=== PATIENT | female | born 1945 | race Caucasian/White ===

== ENCOUNTER 2018-02-14 14:06 | Inpatient (IN) | payer MEDICARE ==
[~2018-02-14] VITALS: Ht 154.9 cm; Wt 61.7 kg
[2018-02-14 14:56] LABS: BASOPHILS # (AUTO) 0.2 /CMM (0.0-0.2); BASOPHILS % (AUTO) 2.3 % (0.0-2.0); EOSINOPHILS % (AUTO) 0.7 % (0.0-6.0); HEMATOCRIT 43 % (33-45); HEMOGLOBIN 13.8 g/dL (11.5-14.8); LYMPHOCYTES # (AUTO) 2.2 /CMM (0.8-4.8); MEAN CORPUSCULAR HEMOGLOBIN 29 PG (26.0-33.0); MEAN CORPUSCULAR HGB CONC 32 g/dl (31.0-36.0); MEAN CORPUSCULAR VOLUME 88 fL (82-100); MONOCYTES # (AUTO) 0.5 /CMM (0.1-1.30); MONOCYTES % (AUTO) 4.7 % (2.0-12.0); NEUTROPHILS # (AUTO) 7.8 /CMM (1.8-8.9); NEUTROPHILS % (AUTO) 72.3 % (43.0-81.0); PLATELET COUNT (AUTO) 497 /CMM (150-450); RDW COEFFICIENT OF VARIATION 12.8 (11.5-15.0); RED BLOOD CELL COUNT(AUTO) 4.85 MIL/uL (4.0-5.2); WHITE BLOOD COUNT (AUTO) 10.8 K/uL (4.3-11.0)
[2018-02-14] MEDS ORDERED: MORPHINE SULFATE INJ 4 MG/ML DISP.SYRIN ONE ×2 (14:58→18:30)
[2018-02-14] MEDS ORDERED: ONDANSETRON HCL/PF 4 MG/2 ML VIAL ONE (14:58)
[2018-02-14] MEDS ORDERED: IV NS 0.9% 1,000 ML BAG IV ONE (15:00)
[2018-02-14] MEDS ORDERED: MORPHINE SULFATE INJ 2 MG/ML DISP.SYRIN IV ONE ×2 (15:00→18:30)
[2018-02-14] MEDS ORDERED: ONDANSETRON HCL/PF 4 MG/2 ML VIAL IVP ONE (15:00)
[2018-02-14 15:05] LABS: CALCIUM, SERUM 9.1 mg/dL (8.5-10.1); CARBON DIOXIDE 29 mmol/L (21-32); CHLORIDE 103 mmol/L (98-107); CREATININE 0.8 mg/dL (0.6-1.3); GLUCOSE 103 mg/dL (74-106); POTASSIUM 4.1 mmol/L (3.5-5.1); SODIUM SERUM 139 mmol/L (136-145); UREA NITROGEN, BLOOD 8 mg/dL (7-18)
[2018-02-14 15:08] LABS: INR 0.98 (0.85-1.15)
--- NOTE | 2018-02-14 15:10 | NUR ---
PT STS HAD CONSTIPATION X 3 DAYS, HAD BM TODAY WITH BLEEDING PER PT.
[2018-02-14 15:11] LABS: ALANINE AMINOTRANSFERASE 27 U/L (12-78); ALKALINE PHOSPHATASE 61 U/L (46-116); ASPARTATE AMINOTRANSFERASE 24 U/L (15-37); BILIRUBIN,DIRECT 0.2 mg/dL (0.0-0.2); BILIRUBIN,TOTAL 0.6 mg/dL (0.2-1.0); LIPASE 119 U/L (73-393); TOTAL PROTEIN, SERUM 7.7 g/dL (6.4-8.2)
[2018-02-14] MEDS ORDERED: IV NS 0.9% 250 ML IV ONE (15:42)
[2018-02-14] MEDS ORDERED: CT SWABBABLE VALVE TRANS SET 1 EA INFUS.SET MC ONE (15:42)
[2018-02-14] MEDS ORDERED: IOHEXOL-300 100 ML VIAL IV ONE (15:42)
[2018-02-14] MEDS ORDERED: PIPERACILLIN /TAZOBACTAM 3.375 G in IV D5W 50 ML IV ONE (17:30)
--- NOTE | 2018-02-14 18:04 | NUR ---
[facility] PAGED DR DEE, AWAITING RESPONSE.
--- NOTE | 2018-02-14 18:06 | NUR ---
CALLED [facility] AND REQUESTED A MED SURG BED FOR THIS PT.
--- NOTE | 2018-02-14 18:43 | NUR ---
DENIES CP, SOB, DIZZINESS, N/V/D @ THIS TIME.
--- NOTE | 2018-02-14 18:43 | NUR ---
MEDICATED FOR PAIN PER ERMD ORDER.
--- NOTE | 2018-02-14 19:03 | NUR ---
PT IS ASSIGNED TO MED SURG RM#: [id number], DX: PROCTITIS, AND ACCEPTING MD: LEILA.
[2018-02-14 20:00] VITALS: BP 137/72
[2018-02-14] MEDS ORDERED: ACETAMINOPHEN 325 MG TABLET PO PRN (20:00)
[2018-02-14] MEDS ORDERED: ZOLPIDEM TARTRATE 5 MG TABLET PO PRN (20:00)
[2018-02-14] MEDS ORDERED: ONDANSETRON HCL/PF 4 MG/2 ML VIAL IVP PRN (20:00)
[2018-02-14] MEDS ORDERED: MAG HYDROX/AL HYDROX/SIMETH 30 ML UDC PO PRN (20:00)
[2018-02-14] MEDS ORDERED: Z GUARD REMEDY 2 OZ OINT TP PRN (20:00)
[2018-02-14] MEDS ORDERED: MAGNESIUM HYDROXIDE 30 ML UDC PO PRN (20:00)
--- NOTE | 2018-02-14 20:30 | NUR ---
MS RN NOTE: RECEIVED PATIENT FROM ER, NO ACUTE DISTRESS NOTED. BREATHING EVEN AND UNLABORED, NO SOB NOTED. IV TO RAC IN PLACE. ORIENTED PATIENT TO ROOM AND USE OF CALL LIGHT. BED LOCKED AND IN LOWEST POSITION, CALL LIGHT IN REACH. WILL CONTINUE TO MONITOR.
[2018-02-14] MEDS: MORPHINE SULFATE INJ 2 MG/ML DISP.SYRIN IV PRN (21:47)
[2018-02-14] MEDS: SENNOSIDES 8.6 MG TABLET PO SCH (21:47)
--- NOTE | 2018-02-14 22:15 | NUR ---
MS RN NOTE: PATIENT COMPLAINS OF RECTAL PAIN 8, MORPHINE 2 MG IV GIVEN PER MD ORDER. WILL CONTINUE TO MONITOR.
[2018-02-15] MEDS: IV NS 0.9% 1,000 ML IV PRN ×2 (00:47→17:09)
[2018-02-15] MEDS: PIPERACILLIN /TAZOBACTAM 3.375 G in IV D5W 50 ML IV SCH ×5 (00:47→23:56)
--- NOTE | 2018-02-15 06:15 | NUR ---
MS RN NOTE: PATIENT RESTING IN BED, NO ACUTE DISTRESS NOTED. BREATHING EVEN AND UNLABORED, NO SOB NOTED. IV TO RAC IN PLACE, INFUSING NS AT 75 ML/HR. BED LOCKED AND IN LOWEST POSITION, CALL LIGHT IN REACH. WILL ENDORSE TO DAY NURSE TO CONTINUE WITH PLAN OF CARE.
[2018-02-15 07:25] LABS: BASOPHILS % (AUTO) 0.5 % (0.0-2.0); EOSINOPHILS % (AUTO) 3.5 % (0.0-6.0); HEMATOCRIT 36 % (33-45); HEMOGLOBIN 11.8 g/dL (11.5-14.8); LYMPHOCYTES # (AUTO) 2.5 /CMM (0.8-4.8); LYMPHOCYTES % (AUTO) 45.3 % (20.0-44.0); MEAN CORPUSCULAR HEMOGLOBIN 30 PG (26.0-33.0); MEAN CORPUSCULAR HGB CONC 33 g/dl (31.0-36.0); MEAN CORPUSCULAR VOLUME 91 fL (82-100); MONOCYTES # (AUTO) 0.5 /CMM (0.1-1.30); MONOCYTES % (AUTO) 8.5 % (2.0-12.0); NEUTROPHILS # (AUTO) 2.4 /CMM (1.8-8.9); NEUTROPHILS % (AUTO) 42.2 % (43.0-81.0); PLATELET COUNT (AUTO) 399 /CMM (150-450); RDW COEFFICIENT OF VARIATION 13.6 (11.5-15.0); RED BLOOD CELL COUNT(AUTO) 3.92 MIL/uL (4.0-5.2); WHITE BLOOD COUNT (AUTO) 5.6 K/uL (4.3-11.0)
--- NOTE | 2018-02-15 07:30 | NUR ---
MS/RN Patient received Patient received from social staff worker. Complaining of rectal pain 5/10, refusing medication at this time, assisted to reposition to relieve discomfort. All needs attended, call light within reach, safety measures in place. Will continue to monitor and ensure safety.
[2018-02-15 07:31] LABS: ALANINE AMINOTRANSFERASE 23 U/L (12-78); ALBUMIN 2.9 g/dL (3.4-5.0); ALKALINE PHOSPHATASE 44 U/L (46-116); ASPARTATE AMINOTRANSFERASE 21 U/L (15-37); BILIRUBIN,TOTAL 0.4 mg/dL (0.2-1.0); CARBON DIOXIDE 27 mmol/L (21-32); CHLORIDE 108 mmol/L (98-107); CREATININE 0.8 mg/dL (0.6-1.3); GLUCOSE 90 mg/dL (74-106); MAGNESIUM 2.4 mg/dL (1.8-2.4); PHOSPHORUS 4.3 mg/dL (2.5-4.9); POTASSIUM 4.3 mmol/L (3.5-5.1); SODIUM SERUM 143 mmol/L (136-145); UREA NITROGEN, BLOOD 9 mg/dL (7-18)
[2018-02-15 07:33] LABS: CHOLESTEROL 195 mg/dL (<200); HDL CHOLESTEROL 47 mg/dL (40-60); LDL 125 mg/dL (0-99); TRIGLYCERIDES 80 mg/dL (30-150)
[2018-02-15 08:00] VITALS: BP_SYST 127; BP_DIAS 65; BP_DIAS 68
[2018-02-15] MEDS: DOCUSATE SODIUM 100 MG CAPSULE PO SCH ×2 (08:28→17:09)
[2018-02-15] MEDS: MORPHINE SULFATE INJ 2 MG/ML DISP.SYRIN IV PRN ×2 (08:29→21:18)
--- NOTE | 2018-02-15 09:00 | NUR ---
MS/RN Medications Medications administered as ordered.
--- NOTE | 2018-02-15 11:39 | NUR ---
MS/RN S/B Dr Borges Seen by Dr Borges - unlikely that pain is due to proctitis, more likely cause to be external hemorrhoids. Patient refusing for rectal examination. To remain in the hospital for further 24 hours with current anti-biotic. Urine to be collected for UA.
[2018-02-15] MEDS ORDERED: NA PHOS,M-B/NA PHOS,DI-BA 1 EA ENEMA RC PRN (12:30)
[2018-02-15] MEDS ORDERED: PEG 3350/NA SULF,BICARB,CL/KCL 4,000 ML BOTTLE PO ONE (12:30)
[2018-02-15] MEDS ORDERED: MAGNESIUM CITRATE 296 ML BOTTLE PO ONE (12:30)
--- NOTE | 2018-02-15 13:00 | NUR ---
MS/RN S/B GI Seen by GI - no indication for colonoscopy at this time as patient had test carried out in June 2017 and had two small polyps removed. Orders for bowel prep and consents cancelled by provider. To continue to monitor patient and observe for any signs of rectal bleeding.
[2018-02-15] MEDS: PANTOPRAZOLE 40 MG VIAL IV SCH (13:50)
--- NOTE | 2018-02-15 14:00 | NUR ---
MS/RN S/B Dr Alvarez Seen by Dr Alvarez - no indication for any surgical intervention at this time, if hemorrhoids continue to cause pain, will arrange to have hemorrhoidectomy as out patient.
[2018-02-15] MEDS ORDERED: LIDOCAINE 2% JEL 5 ML TUBE MC ONE (14:30)
[2018-02-15 15:18] LABS: IRON, SERUM 51 ug/dl (50-175); TOTAL IRON BINDING CAPACITY 204 ug/dl (250-450)
[2018-02-15 16:00] VITALS: BP 121/62
[2018-02-15] MEDS: HYDROCORTISONE ACETATE 25 MG/SUPP.RECT SUPP.RECT RC SCH (17:09)
[2018-02-15] MEDS ORDERED: IBUPROFEN 400 MG TABLET PO PRN (18:30)
--- NOTE | 2018-02-15 19:36 | NUR ---
MS/RN End note No changes in condition at this time, patient stating that pain has improved since suppository was inserted. No BM despite stool softeners being given. All needs attended, will endorse to shift mechanic.
--- NOTE | 2018-02-15 19:37 | NUR ---
RN NOTES RECEIVED PT AWAKE, ALERT AND ORIENTED X4. PT DENIES ANY PAIN AND DISCOMFORT AT THIS TIME, PT CLAIMS SHE HAS PAIN WHEN SHE MOVES. IV ACCESS ON RIGHT HAND PATENT AND INTACT WITH ONGOING IVF INFUSING WELL. SAFETY MEASURES AND FALL PRECAUTION OBSERVED. PLAN OF CARE DISCUSSED WITH THE PT AND VERBALIZED UNDERSTANDING. WILL CONTINUE TO MONITOR PT.
[2018-02-15 19:45] LABS: APPEARANCE,URINE CLEAR (CLEAR); BILIRUBIN,URINE NEGATIVE (NEGATIVE); BLOOD, URINE NEGATIVE Ery/uL (NEGATIVE); COLOR,URINE YELLOW (YELLOW); KETONES,URINE NEGATIVE (NEGATIVE); LEUKOCYTE ESTERASE ,URINE TRACE (NEGATIVE); NITRITE, URINE NEGATIVE (NEGATIVE); PH,URINE 6.5 (5.0-8.0); PROTEIN,URINE NEGATIVE (NEGATIVE); UGLUCOSE NEGATIVE (NEGATIVE); UROBILINOGEN,URINE 0.2 EU/dL (0.2)
[2018-02-15 20:00] VITALS: BP 127/62
[2018-02-15 20:12] LABS: BACTERIA,URINE None seen /HPF (None Seen); RBC,URINE 0-2 /HPF (0-2); SQUAMOUS EPITHELIAL CELL,UR Rare /HPF (None Seen); WBC,URINE 0-2 /HPF (0-3)
[2018-02-15] MEDS: SENNOSIDES 8.6 MG TABLET PO SCH (21:16)
--- NOTE | 2018-02-15 21:18 | NUR ---
RN NOTES PT COMPLAINS OF RECTAL PAIN 02/11, MORPHINE 2 MG GIVEN IV. WILL CONTINUE TO MONITOR PT.
[2018-02-15 22:00] VITALS: BP 127/62
[2018-02-16] MEDS: HYDROCORTISONE ACETATE 25 MG/SUPP.RECT SUPP.RECT RC SCH ×2 (02:04→14:07)
[2018-02-16] MEDS: PIPERACILLIN /TAZOBACTAM 3.375 G in IV D5W 50 ML IV SCH ×2 (06:14→11:03)
[2018-02-16] MEDS: IV NS 0.9% 1,000 ML IV PRN (06:25)
[2018-02-16 06:36] LABS: BASOPHILS % (AUTO) 0.4 % (0.0-2.0); EOSINOPHILS % (AUTO) 2.7 % (0.0-6.0); HEMATOCRIT 35 % (33-45); HEMOGLOBIN 11.8 g/dL (11.5-14.8); LYMPHOCYTES # (AUTO) 2.1 /CMM (0.8-4.8); LYMPHOCYTES % (AUTO) 39.6 % (20.0-44.0); MEAN CORPUSCULAR HEMOGLOBIN 30 PG (26.0-33.0); MEAN CORPUSCULAR HGB CONC 33 g/dl (31.0-36.0); MEAN CORPUSCULAR VOLUME 91 fL (82-100); MONOCYTES # (AUTO) 0.4 /CMM (0.1-1.30); MONOCYTES % (AUTO) 7.2 % (2.0-12.0); NEUTROPHILS # (AUTO) 2.6 /CMM (1.8-8.9); NEUTROPHILS % (AUTO) 50.1 % (43.0-81.0); PLATELET COUNT (AUTO) 374 /CMM (150-450); RDW COEFFICIENT OF VARIATION 13.3 (11.5-15.0); RED BLOOD CELL COUNT(AUTO) 3.89 MIL/uL (4.0-5.2); WHITE BLOOD COUNT (AUTO) 5.2 K/uL (4.3-11.0)
[2018-02-16 06:53] LABS: CALCIUM, SERUM 8.3 mg/dL (8.5-10.1); CARBON DIOXIDE 28 mmol/L (21-32); CHLORIDE 108 mmol/L (98-107); CREATININE 0.8 mg/dL (0.6-1.3); GLUCOSE 110 mg/dL (74-106); POTASSIUM 4.2 mmol/L (3.5-5.1); SODIUM SERUM 143 mmol/L (136-145); UREA NITROGEN, BLOOD 5 mg/dL (7-18)
--- NOTE | 2018-02-16 07:34 | NUR ---
RN NOTES PT SLEPT WELL OVERNIGHT. VITAL SIGNS STABLE. PAIN CONTROLLED WITH CURRENT REGIMEN. NO BM SINCE ADMISSION. ALL NEEDS ATTENDED. ENDORSED TO MORNING RN FOR CONTINUITY OF CARE.
--- NOTE | 2018-02-16 07:35 | NUR ---
RN NOTES SPOKE WITH DR. MONTIEL AND VERIFIED IF PATIENT IS HAVING COLONOSCOPY TODAY, PER MD, SHE'S NOT ON THE LIST. PATIENT ASLEEP BUT RESPONSIVE TO VERBAL STIMULI. BREATHING EVEN AND UNLABORED, NO DISTRESS NOTED, KEPT COMFORTABLE, NEEDS ATTENDED, CALL LIGHT WITHIN REACH, WILL CONTINUE TO MONITOR.
[2018-02-16 08:19] VITALS: BP 143/70
[2018-02-16] MEDS: DOCUSATE SODIUM 100 MG CAPSULE PO SCH (09:04)
[2018-02-16] MEDS ORDERED: HYDR25SU13 RC (10:39)
[2018-02-16] MEDS ORDERED: DOCU-141 PO (10:39)
[2018-02-16] MEDS ORDERED: HYDR-552 PO (10:39)
[2018-02-16] MEDS: MORPHINE SULFATE INJ 2 MG/ML DISP.SYRIN IV PRN (11:04)
[2018-02-16] MEDS: PANTOPRAZOLE 40 MG VIAL IV SCH (14:06)
--- NOTE | 2018-02-16 15:30 | NUR ---
DISCHARGE PATIENT A/OX3, NO DISTRESS NOTED, STILL C/O MILD PAIN ON HER RECTAL AREA, PATIENT RECEIVED DISCHARGE INSTRUCTIONS AND VERBALIZED UNDERSTANDING, PAPERWORKS SIGNED. PRESCRIPTION PROVIDED AND MEDICATION EXPLAINED. SKIN ASSESSMENT COMPLETED, SKIN DRY AND INTACT. PATIENT PERIPHERAL IV LINE REMOVED, PRESSURE APPLIED AND COVERED WITH GAUZE. BELONGINGS RECONCILED AND COMPLETE. PATIENT ACCOMPANIED BY , LEFT THE FACILITY IN NO DISTRESS.
== END 2018-02-16 15:30 | disposition home or self-care (01) | DRG 394 ==
LOC: ER 14:07 → MEDSG2 19:09
PROVIDERS: ADMIT Internal Medicine; ATTEND Internal Medicine
DX: K64.8 Other hemorrhoids (principal); K62.5 Hemorrhage of anus and rectum; K62.89 Other specified diseases of anus and rectum; I10 Essential (primary) hypertension; E88.09 Other disorders of plasma-protein metabolism, not elsewhere classified; E83.51 Hypocalcemia; K59.00 Constipation, unspecified; D64.9 Anemia, unspecified; D25.9 Leiomyoma of uterus, unspecified
CPT/HCPCS: 36415; 80048-TC; 80053-TC; 80061-TC; 80076-TC; 81000-TC; 83540-TC; 83690-TC; 83735-TC; 84100-TC; 85025-TC; 85730-TC; 87081-TC; 87086-TC; A4606; A6403; C9113; J2270; J2405; J2543; J7030; J7050; J7060; Q9967; Z7610

== ENCOUNTER 2018-02-22 12:38 | Outpatient (CLI) | payer MEDICARE ==
[~2018-02-22 12:38] MED LIST: DOCU-141 PO; HYDR-552 PO; HYDR25SU13 RC
[2018-02-22 12:48] VITALS: BP 161/73
[2018-02-22] MEDS ORDERED: OLME1TAB16 PO (13:07)
== END 2018-02-22 23:59 | disposition home or self-care (01) ==
LOC: MSC 12:38
PROVIDERS: ATTEND Internal Medicine
DX: K62.89 Other specified diseases of anus and rectum (principal); K64.9 Unspecified hemorrhoids; I10 Essential (primary) hypertension; M19.90 Unspecified osteoarthritis, unspecified site

== ENCOUNTER 2025-03-09 16:04 | Inpatient (IN) | payer MEDICARE, BC ==
[~2025-03-09] VITALS: Ht 149.9 cm; Wt 52.2 kg
[~2025-03-09 16:04] MED LIST changes: +HYDR-4384 PO; -HYDR-552 PO; +OLME1TAB16 PO
[2025-03-09] MEDS ORDERED: ONDANSETRON HCL/PF 4 MG/2 ML VIAL ONE (18:43)
[2025-03-09] MEDS ORDERED: MORPHINE SULFATE INJ 4 MG/ML DISP.SYRIN ONE (18:44)
[2025-03-09] MEDS: ONDANSETRON HCL/PF - ER 4 MG/2 ML VIAL IV ONE (18:55)
[2025-03-09] MEDS: MORPHINE SULFATE INJ 2 MG/ML DISP.SYRIN IV ONE (18:55)
[2025-03-09 19:12] LABS: PLATELET COUNT (AUTO) 224 K/uL (150-450); RED BLOOD CELL COUNT(AUTO) 4.19 MIL/uL (4.0-5.2); RED CELL DISTRIBUTION WIDTH 13.7 % (11.5-15.0); WHITE BLOOD COUNT (AUTO) 8.1 K/uL (4.3-11.0)
[2025-03-09 19:19] LABS: CALCIUM, SERUM 8.7 mg/dL (8.5-10.1); CREATININE 0.8 mg/dL (0.6-1.3); SODIUM SERUM 141 mmol/L (136-145); UREA NITROGEN, BLOOD 15 mg/dL (7-18)
[2025-03-09 19:23] LABS: INR 1.01 (0.91-1.10)
[2025-03-09 21:45] VITALS: BP 179/88; TEMP 97.9; O2SAT 96
[2025-03-09 22:00] VITALS: BP 179/88; TEMP 97.9; O2SAT 96
[2025-03-09] MEDS: MORPHINE SULFATE INJ 4 MG/ML DISP.SYRIN IV PRN (22:27)
[2025-03-09] MEDS ORDERED: MAG HYDROX/AL HYDROX/SIMETH 30 ML UDC PO PRN (22:30)
[2025-03-09] MEDS: ENOXAPARIN SODIUM 40 MG/0.4 ML DISP.SYRIN SQ SCH (22:49)
[2025-03-09 23:15] VITALS: BP 158/83
[2025-03-10] VITALS (8 sets, daily range): BP systolic 135–156; BP diastolic 66–74; TEMP 98–98.2; O2SAT 94–96
[2025-03-10] MEDS: ONDANSETRON HCL/PF 4 MG/2 ML VIAL IVP PRN (04:17)
[2025-03-10] MEDS ORDERED: hydrALAZINE HCL IV 20 MG VIAL IV PRN (04:30)
[2025-03-10 06:48] LABS: PLATELET COUNT (AUTO) 195 K/uL (150-450); RED BLOOD CELL COUNT(AUTO) 3.89 MIL/uL (4.0-5.2); RED CELL DISTRIBUTION WIDTH 13.8 % (11.5-15.0); WHITE BLOOD COUNT (AUTO) 4.4 K/uL (4.3-11.0)
[2025-03-10 07:07] LABS: CALCIUM, SERUM 8.0 mg/dL (8.5-10.1); CREATININE 0.8 mg/dL (0.6-1.3); PHOSPHORUS 3.6 mg/dL (2.5-4.9); SODIUM SERUM 137.0 mmol/L (136-145); UREA NITROGEN, BLOOD 13.0 mg/dL (7-18)
[2025-03-10] MEDS: VALSARTAN 80 MG TABLET PO SCH (09:13)
[2025-03-10] MEDS: DOCUSATE SODIUM 100 MG CAPSULE PO SCH (09:13)
[2025-03-10] MEDS ORDERED: VALS160T29 PO (10:23)
[2025-03-10] MEDS: ATORVASTATIN 10 MG TABLET PO SCH (21:46)
[2025-03-11 07:54] LABS: PLATELET COUNT (AUTO) 191 K/uL (150-450); RED BLOOD CELL COUNT(AUTO) 3.94 MIL/uL (4.0-5.2); RED CELL DISTRIBUTION WIDTH 13.7 % (11.5-15.0); WHITE BLOOD COUNT (AUTO) 4.5 K/uL (4.3-11.0)
[2025-03-11 08:00] VITALS: BP 129/71; TEMP 98.6; O2SAT 96
[2025-03-11 08:04] LABS: CALCIUM, SERUM 8.4 mg/dL (8.5-10.1); CREATININE 0.9 mg/dL (0.6-1.3); SODIUM SERUM 140.0 mmol/L (136-145); UREA NITROGEN, BLOOD 14.0 mg/dL (7-18)
[2025-03-11] MEDS: MORPHINE SULFATE INJ 2 MG/ML DISP.SYRIN IV PRN (10:37)
[2025-03-11 16:00] VITALS: BP 126/68; TEMP 97.5; O2SAT 95
[2025-03-11 16:14] VITALS: BP 126/68; TEMP 97.5; O2SAT 98
[2025-03-11 20:00] VITALS: BP 135/64; TEMP 98.4; O2SAT 98
[2025-03-12 07:03] LABS: CALCIUM, SERUM 8.5 mg/dL (8.5-10.1); CREATININE 0.8 mg/dL (0.6-1.3); SODIUM SERUM 140.0 mmol/L (136-145); UREA NITROGEN, BLOOD 16.0 mg/dL (7-18)
[2025-03-12 07:11] LABS: PLATELET COUNT (AUTO) 176 K/uL (150-450); RED BLOOD CELL COUNT(AUTO) 4.13 MIL/uL (4.0-5.2); RED CELL DISTRIBUTION WIDTH 13.6 % (11.5-15.0); WHITE BLOOD COUNT (AUTO) 4.3 K/uL (4.3-11.0)
[2025-03-12 08:00] VITALS: BP 148/77; TEMP 98.1; O2SAT 96
[2025-03-12] MEDS: ACETAMINOPHEN 325 MG TABLET PO PRN (08:32)
[2025-03-12 16:00] VITALS: BP 118/80; TEMP 97.9; O2SAT 98
[2025-03-12 20:00] VITALS: BP 134/85; TEMP 98.1; O2SAT 97
[2025-03-12] MEDS: MAGNESIUM HYDROXIDE 30 ML UDC PO PRN (20:54)
[2025-03-13 08:00] VITALS: BP 142/75; TEMP 97.9; O2SAT 96
[2025-03-13 08:34] VITALS: BP 142/75; TEMP 97.9; O2SAT 96
[2025-03-13] MEDS: LACTULOSE 10 G/15 ML UDC (PYXIS) PO ONE (11:45)
[2025-03-13] MEDS: POLYETHYLENE GLYCOL 3350 17 GM POWD.PACK PO SCH (12:55)
[2025-03-13 16:00] VITALS: BP 104/62; TEMP 98.2; O2SAT 96
[2025-03-13 20:00] VITALS: BP 120/69; TEMP 98.4; O2SAT 95
[2025-03-13] MEDS: SENNOSIDES 8.6 MG TABLET PO SCH (22:00)
[2025-03-14 08:00] VITALS: BP 124/71; TEMP 98.2; O2SAT 94
[2025-03-14 09:51] VITALS: BP 124/71; TEMP 98.2; O2SAT 94
== END 2025-03-14 15:00 | DRG 552 ==
LOC: ER 16:11 → MED 21:30
PROVIDERS: ADMIT Registered Nurse Psychiatric/Mental Health; ATTEND Nurse Practitioner Acute Care
DX: S32.028A Other fracture of second lumbar vertebra, initial encounter for closed fracture (principal); V03.90XA Pedestrian on foot injured in collision with car, pick-up truck or van, unspecified whether traffic or nontraffic accident, initial encounter; Y92.481 Parking lot as the place of occurrence of the external cause; I10 Essential (primary) hypertension; M19.90 Unspecified osteoarthritis, unspecified site; D25.9 Leiomyoma of uterus, unspecified; Y93.9 Activity, unspecified; K59.03 Drug induced constipation; T40.2X5A Adverse effect of other opioids, initial encounter; Y92.89 Other specified places as the place of occurrence of the external cause
CPT/HCPCS: 36415; 70450-TC; 71045-TC; 72125-TC; 72131-TC; 72192-TC; 73030-TC; 80048-TC; 83735-TC; 84100-TC; 85025-TC; 85730-TC; 97110-TC; 97116-TC; 97530-TC; 97535-TC; G0378; J1650; J2270; J2405